=== PATIENT | male | born 1980 | race Two or more races ===

== ENCOUNTER 2018-07-26 12:23 | Outpatient (CLI) | payer OTHER | END 2018-07-26 16:28 | disposition home or self-care (01) | LOC: MRI 12:23 | DX: R47.1 Dysarthria and anarthria (principal) | CPT/HCPCS: 70551 ==

== ENCOUNTER → 2018-07-26 | Emergency (ER) | payer OTHER ==
[~2018-07-26] VITALS: Ht 170.2 cm; Wt 106.6 kg
== END | disposition home or self-care (01) ==
LOC: ER 11:03 → EDBD 11:44
DX: R47.1 Dysarthria and anarthria (principal)